=== PATIENT | female | born 1995 | race Caucasian/White ===

== ENCOUNTER 2016-07-22 10:17 | Inpatient (IN) ==
[2016-07-22 10:43] LABS: URINE SOURCE CLEAN CATCH
[2016-07-22 11:06] LABS: MANUAL DIFF NEEDED? NO
[2016-07-22 11:07] LABS: BASO% 0.7 % (0.0-0.8); EOS# 0.33 X1000 (0.0-0.7); EOS% 2.8 % (0.0-10.0); HEMATOCRIT 38.4 % (37.0-47.0); HEMOGLOBIN 12.2 g/dL (12.0-16.0); IMM GRAN# 0.03 X1000 (0.0-0.04); IMM GRAN% 0.3 % (0.0-0.5); LYMPH# 3.88 X1000 (1.2-3.4); LYMPH% 32.9 % (20.5-51.1); MCH 24.4 PG (27-31); MCHC 31.8 g/dL (33-37); MONO# 0.73 X1000 (0.11-0.59); MONO% 6.2 % (1.7-9.3); MPV 10.3 FL (7.4-10.4); NEUT% 57.1 % (42.2-75.2); PLT 402 X1000 (130-400); RBC 4.99 XMIL (4.2-5.4)
[2016-07-22 11:10] LABS: BILIRUBIN URINE NEGATIVE (NEGATIVE); BLOOD URINE NEGATIVE (NEGATIVE); CLARITY CLEAR (CLEAR); COLOR YELLOW; GLUCOSE URINE NEGATIVE (NEGATIVE); LEUKOCYTES URINE 2+ (NEGATIVE); NITRITE URINE NEGATIVE (NEGATIVE); PROTEIN URINE 1+(30 mg/dL) mg/dL (NEGATIVE); SP GRAVITY URINE 1.025; UROBILINOGEN URINE 1+(1 mg/dL)
[2016-07-22 11:11] LABS: URINE CULTURE PL NEEDED? YES; URINE EPITHELIAL CELLS <10 /HPF (<10); URINE WBC 20-40 /HPF (<10)
--- NOTE | 2016-07-22 11:28 | PROVIDER DOCUMENTATION ---
HPI-Abdominal Pain/GI Problem - General Chief Complaint: Abdominal Pain Stated Complaint: ABD PAIN Time Seen by Provider: 07/22/16 11:46 Source: patient Allergies/Adverse Reactions: Patient Allergies Allergy/AdvReac Type Severity Reaction Status Date / Time No Known Allergies Allergy Verified 12/14/15 09:35 Home Medications: Home Medication List Medication Instructions Recorded Confirmed Last Taken Type No Home Medications 07/22/16 07/22/16 Unknown History - History of Present Illness-ABD Nature of Presenting Problems: 20 yo F presents to the ER with complaint of sudden onset of abdominal pain while at work, describes it as the "worst pain she has ever experienced". Pt states at the time it was generalized abdominal pain, now it is more just RUQ. Denies any nausea or vomiting. Abdominal Pain Onset Location: reports: RUQ, generalized abdomen Pain Radiation: reports: no radiation Onset/Duration: reports: just prior to arrival Associated Symptoms: denies: constipation, diarrhea, nausea, vomiting Review of Systems - Adult - REVIEW OF SYSTEMS - ADULT Constitutional: denies: chills, fever Eyes: reports: no symptoms reported Ears, Nose, Mouth & Throat: reports: no symptoms reported Cardiovascular: denies: chest pain, palpitations Respiratory: denies: cough, shortness of breath Gastrointestinal: reports: abdominal pain. denies: diarrhea, nausea, vomiting Genitourinary: reports: no symptoms reported Musculoskeletal: reports: no symptoms reported Integumentary: reports: no symptoms reported Neurological: reports: no symptoms reported Psychiatric: reports: no symptoms reported Endocrine: reports: no symptoms reported Hematologic/Lymphatic: reports: no symptoms reported Allergic/Immunologic: reports: no symptoms reported All Other Systems: Reviewed and Negative Past History - Adult - PAST MEDICAL HISTORY-ADULT Review of Records: reports: Nursing Assessment Review, Medications Reviewed - IMMUNIZATION STATUS Childhood Immunizations: See Nurse Assessment Flu Vaccine: See Nurse Assessment Physical Exam-General - PHYSICAL EXAM-ADULT Initial Vital Signs Reviewed: Yes - CONSTITUTIONAL General Appearance: alert, no apparent distress - EYES Eyes: PERRL/EOMI, pink conjunctivae - HEAD, EARS, NOSE, MOUTH & THROAT HENMT: normocephalic/atraumatic, normal ENT inspection - NECK Neck: supple, normal inspection - RESPIRATORY Respiratory: no respiratory distress, no accessory muscle use - CARDIOVASCULAR Cardiovascular: normal peripheral pulses, regular rate, rhythm - GASTROINTESTINAL (ABDOMEN) Abdominal Exam: normal bowel sounds, soft, tenderness (RUQ) - MUSCULOSKELETAL Back Exam: no CVA tenderness, no vertebral tenderness Extremity: normal range of motion, non-tender, normal gait, normal inspection - SKIN Integumentary: normal color, warm/dry - NEUROLOGIC Neurologic: grossly normal, no motor/sensory deficits - PSYCHIATRIC Psych/Mental Status: normal mood/affect, normal thought content, normal thought process, oriented x 3 Progress - PLAN OF CARE/RESULTS Progress/Plan/Lab Results: Vital Signs Temp Pulse Resp Pulse Ox 07/22/16 10:31 98 F 77 28 H 100 No Known Allergies Allergy (Verified 12/14/15 09:35) No Home Medications 07/22/16 Laboratory 07/22/16 07/22/16 07/22/16 10:50 10:50 10:35 WBC 11.81 H RBC 4.99 Hgb 12.2 Hct 38.4 MCV 77.0 L MCH 24.4 L MCHC 31.8 L RDW Std Deviation 16.5 H Plt Count 402 H MPV 10.3 Immature Gran % (Auto) 0.3 Neut % (Auto) 57.1 Lymph % (Auto) 32.9 [place] % (Auto) 6.2 Eos % (Auto) 2.8 Baso % (Auto) 0.7 Immature Gran # (Auto) 0.03 Neut # (Auto) 6.76 H Lymph # (Auto) 3.88 H [place] # (Auto) 0.73 H Eos # (Auto) 0.33 Baso # (Auto) 0.08 Sodium 140 Potassium 3.6 Chloride 105 Carbon Dioxide 24 L Anion Gap 11 BUN 9 Creatinine 0.9 Estimated GFR/1.73 m2 > 60 BUN/Creatinine Ratio 10 Glucose 136 H Calculated Osmolality 280 Calcium 9.8 Total Bilirubin 0.20 AST 33 H ALT 47 H Alkaline Phosphatase 86 Total Protein 7.2 Albumin 4.1 Globulin 3.0 Albumin/Globulin Ratio 1.0 Amylase 55 Lipase 34 Urine Source Urine Color Urine Clarity Urine pH Ur Specific Benton Urine Protein Urine Ketones Urine Blood Urine Nitrite Urine Bilirubin Urine Urobilinogen Urine Microscopic RBC Urine WBC Urine Microscopic WBC Ur Epithelial Cells Urine Bacteria Urine Glucose Urine Test NEGATIVE 07/22/16 10:35 WBC RBC Hgb Hct MCV MCH MCHC RDW Std Deviation Plt Count MPV Immature Gran % (Auto) Neut % (Auto) Lymph % (Auto) [place] % (Auto) Eos % (Auto) Baso % (Auto) Immature Gran # (Auto) Neut # (Auto) Lymph # (Auto) [place] # (Auto) Eos # (Auto) Baso # (Auto) Sodium Potassium Chloride Carbon Dioxide Anion Gap BUN Creatinine Estimated GFR/1.73 m2 BUN/Creatinine Ratio Glucose Calculated Osmolality Calcium Total Bilirubin AST ALT Alkaline Phosphatase Total Protein Albumin Globulin Albumin/Globulin Ratio Amylase Lipase Urine Source CLEAN CATCH Urine Color YELLOW Urine Clarity CLEAR Urine pH 5.0 Ur Specific Benton 1.025 Urine Protein 1+(30 mg/dL) A Urine Ketones TRACE Urine Blood NEGATIVE Urine Nitrite NEGATIVE Urine Bilirubin NEGATIVE Urine Urobilinogen 1+(1 mg/dL) Urine Microscopic RBC Not Reportable Urine WBC 2+ A Urine Microscopic WBC 20-40 A Ur Epithelial Cells <10 Urine Bacteria 2+ Urine Glucose NEGATIVE Urine Test Orders Category Date Time Status US GB < RUQ (LIMITED) [US] Stat Exams 07/22/16 11:46 Taken AMYLASE [CHEM] Stat Lab 07/22/16 10:50 Completed CBC WITH DIFF [HEME] Stat Lab 07/22/16 10:50 Completed COMPREHENSIVE METABOLIC PANEL [CHEM] Stat Lab 07/22/16 10:50 Completed LIPASE [CHEM] Stat Lab 07/22/16 10:50 Completed TEST-URINE [PREG] Stat Lab 07/22/16 10:[address] W/POSS RFLX CULT [URINALYSIS] Stat Lab 07/22/16 10:35 Completed URINE CULTURE [RM] Routine Lab 07/22/16 11:12 Received - ULTRASOUND (By Radiology) 1 US Study: Gallbladder Impression: Abnormal (impacted stone in GB neck, cholecystitis, per radiologist) - CONSULTS/PCP/HOSPITALIST Notification #1 *Consult/PCP/Hospitalist*: Dr. Su Time Discussed: 15:28 Consult Disposition: Admit Departure - Departure Time of Disposition Order: 15:29 DIAGNOSIS: Cholecystitis, Gallstone (impacted) Disposition: ADMITTED INPATIENT 09 Certified Medical Emergency: Emergent Condition: Stable Attestation - Scribe Verification/Attestation Scribe:: Birgit Blanco Acting as Scribe for:: Esteban Mendez Scribe documention review:: This chart was documented by a scribe and accurately reflects the service the provider performed and the decisions made by the provider.
[2016-07-22 11:31] LABS: AGAP 11; ALBUMIN 4.1 g/dL (3.5-5.0); ALKALINE PHOSPHATASE 86 U/L (32-104); AMYLASE 55 U/L (20-200); BUN 9 mg/dL (8-22); CALCIUM 9.8 mg/dL (8.8-10.2); CHLORIDE 105 mmol/L (98-107); COSMO 280; GOT 33 U/L (10-30); GPT 47 U/L (10-36); LIPASE 34 U/L (13-60); POTASSIUM 3.6 mmol/L (3.5-5.1); SODIUM 140 mmol/L (136-145); TCO2 24 mmol/L (25-35); TOTAL PROTEIN 7.2 g/dL (6.3-8.3)
--- NOTE | 2016-07-22 15:34 | Diag Imaging Result Document ---
PROCEDURE NAME: US GB < RUQ (LIMITED) - 07/22/2016 RIGHT UPPER QUADRANT ULTRASOUND: FINDINGS: The head and body of the pancreas are within normal limits. The liver is somewhat hyperechoic. The aorta and inferior vena cava are normal in appearance where they are visible. There is antegrade flow in the portal vein. The common bile duct measures 4 mm. The right kidney is without evidence of hydronephrosis or mass. The gallbladder wall is thickened. There is a stone in the neck of the gallbladder, and there is considerable sediment. The stone measures at least 12 mm in diameter. The gallbladder wall is slightly thickened, and there appears to be sediment within the gallbladder. There is an apparent sonographic Matias sign. IMPRESSION: Acute cholecystitis with stone impacted in the gallbladder neck.
[2016-07-22] MEDS ORDERED: TYLENOL PO PRN (16:04)
[2016-07-22] MEDS ORDERED: NS 1,000 ML IV SCH (16:15)
[2016-07-22] MEDS ORDERED: ZOFRAN IV PRN (18:20)
[2016-07-22] MEDS: LR 1,000 ML IV SCH (19:09)
[2016-07-22] MEDS: ZOSYN 3.375 GM/NS 50 ML IV SCH ×2 (19:09→23:16)
--- NOTE | 2016-07-22 20:10 | HISTORY AND PHYSICAL ---
ADMITTING DIAGNOSIS: Acute cholecystitis. HISTORY OF PRESENT ILLNESS: A 20-year-old, female presenting to the [facility] ER with right upper quadrant pain. This hit her suddenly while she was working at [employer]. She said she had previous pain in her right upper quadrant but nothing to this degree. She had pain in right upper quadrant previously and was evaluated in the emergency department and found to have gallstones. At that time, nothing was done. She did report a previous episode. She had pain that radiated to her back and to her chest on the right side. This all initially started 3 years ago when she had her son. She has not had such severe symptoms until today, again when she started having sudden onset sharp pain which she describes as the worst pain she has ever had and it felt like something was twisting in her abdomen at her right upper quadrant. She was evaluated in the emergency department and found to have acute cholecystitis and transferred over to [facility] [place] for evaluation. The patient is reporting that her pain is improved somewhat but still has some right upper quadrant pain. PAST MEDICAL HISTORY: None. PAST SURGICAL HISTORY: Pre wisdom teeth removal. MEDICATIONS: None. ALLERGIES: None. SOCIAL HISTORY: The patient is a current smoker of 1 pack per day. She drinks socially. No recreational drugs. FAMILY HISTORY: Reviewed with patient, noncontributory. REVIEW OF SYSTEMS: A full 10 point review of systems obtained, negative except those specified in HPI. PHYSICAL EXAMINATION: VITAL SIGNS: The patient is currently afebrile. Temperature 99.4 degrees, pulse is regular at 76, respiratory rate nonlabored at 20, blood pressure 127/68, O2 saturation 100% on room air. GENERAL EXAM: No acute distress. Resting comfortably in bed. female, looks stated age. Patient's BMI is 32.7. In HEENT: Normocephalic, atraumatic. Pupils equal, round, reactive to light. Mucous membranes moist. Oropharynx benign. NECK: Supple. Trachea midline. CARDIOVASCULAR: Regular rate and rhythm. LUNGS: Grossly clear. ABDOMEN: Soft, nondistended. Some tenderness to palpation in the right upper quadrant. Questionably positive Matias's sign. No peritoneal signs. EXTREMITIES: Moves all extremities. SKIN: No signs of jaundice. VASCULAR: All extremities perfused. LABORATORY: White blood cell count is 11.8, hematocrit is 38.4, platelet count 402,000. CMP reviewed. Of note, bilirubin 0.2, alkaline phosphatase 86, lipase is 34. IMAGING: Ultrasound reviewed and radiology report reviewed. Patient does have a mildly thickened gallbladder, no pericholecystic fluid and a stone impacted in the infundibulum of the gallbladder. No other pathology appreciated on ultrasound. ASSESSMENT AND PLAN: A 20-year-old, female with acute cholecystitis. Acute cholecystitis. At this time we will give the patient IV antibiotics over the course of the night, keep her n.p.o., and plan for laparoscopic cholecystectomy in the morning. Discussed the surgery with the patient. Discussed risks, benefits, alternatives. She voiced understanding and wishes to proceed with surgery. Again, I have her posted for in the morning.
[2016-07-23] MEDS: LR 1,000 ML IV SCH ×3 (05:44→22:05)
[2016-07-23] MEDS: ZOSYN 3.375 GM/NS 50 ML IV SCH ×3 (05:44→17:48)
[2016-07-23 06:42] LABS: AGAP 12; ALBUMIN 3.2 g/dL (3.5-5.0); ALKALINE PHOSPHATASE 61 U/L (32-104); BUN 7 mg/dL (8-22); CHLORIDE 108 mmol/L (98-107); COSMO 281; GOT 21 U/L (10-30); GPT 36 U/L (10-36); POTASSIUM 4.1 mmol/L (3.5-5.1); SODIUM 142 mmol/L (136-145); TCO2 22 mmol/L (25-35); TOTAL BILIRUBIN 0.47 mg/dL (0.20-1.00); TOTAL PROTEIN 5.7 g/dL (6.3-8.3)
--- NOTE | 2016-07-23 07:13 | PROGRESS NOTE ---
DATE: 07/23/2016 SUBJECTIVE: Patient doing okay. Pain is improved. No real nausea or vomiting. OBJECTIVE: Vital Signs: Patient is currently afebrile. Her vital signs are stable. General Exam: No acute distress. Alert, interactive, female, looks stated age. HEENT: Normocephalic, atraumatic. Pupils are equal, round, reactive to light. No scleral icterus noted. Mucous membranes moist. Oropharynx benign. Neck: Supple. Trachea midline. Cardiovascular: Regular rate and rhythm. Lungs: Grossly clear. Abdomen: Soft, nondistended. Some mild right upper quadrant epigastric tenderness to palpation. Improved from yesterday. Extremities: Moves all extremities. Neurologic: Grossly intact. Skin: No signs of jaundice. Vascular: All extremities perfused. LABORATORY: Currently pending. ASSESSMENT AND PLAN: A 20-year-old, female with cholecystitis. Cholecystitis: At this time, we will plan on surgical intervention today. Will follow up with labs. May need cholangiogram.
[2016-07-23 08:05] LABS: HEMATOCRIT 33.5 % (37.0-47.0); HEMOGLOBIN 10.6 g/dL (12.0-16.0); MCH 24.5 PG (27-31); MCHC 31.6 g/dL (33-37); MCV 77.5 FL (81-99); MPV 10.2 FL (7.4-10.4); RBC 4.32 XMIL (4.2-5.4)
[2016-07-23] MEDS ORDERED: SODIUM CHLORIDE 0.9% ONE (16:24)
[2016-07-23] MEDS ORDERED: MARCAINE 0.25% PF/EPI 1:200,000 ONE (16:24)
[2016-07-23] MEDS ORDERED: LR 1,000 ML ONE (16:24)
[2016-07-23] MEDS ORDERED: VERSED ONE (16:33)
[2016-07-23] MEDS ORDERED: DEMEROL ONE ×2 (18:04→18:18)
[2016-07-23] MEDS: PHENERGAN ONE ×2 (18:04→18:18)
[2016-07-23] MEDS ORDERED: FENTANYL ONE (19:10)
[2016-07-23] MEDS ORDERED: DIPRIVAN 1% ONE (19:11)
[2016-07-23] MEDS: MORPHINE IV PRN (21:55)
--- NOTE | 2016-07-23 22:37 | OPERATIVE NOTE ---
PROCEDURE DATE: 07/23/2016 PREOPERATIVE DIAGNOSIS: Acute cholecystitis. POSTOP DIAGNOSIS: Acute cholecystitis. PROCEDURES: Laparoscopic cholecystectomy. SURGEON: Vishnu Su MD. BATH STEWARD/STEWARDESS: None. ANESTHESIA: General endotracheal. INTRAOPERATIVE FINDINGS: Inflamed gallbladder with infected looking bile with a large stone noted. COMPLICATIONS: None time of dictation. ESTIMATED BLOOD LOSS: 20 mL. SPECIMEN REMOVED: Gallbladder. DRAINS: 19-Australian Marshall drain. BRIEF HISTORY: The patient is a 20-year-old female presenting with symptoms classic for acute cholecystitis. She was evaluated in the emergency department found to have acute cholecystitis and was admitted to the hospital, started on antibiotics. The risks, benefits, alternatives for cholecystectomy were discussed. She voiced understanding and wished to proceed with procedure. DESCRIPTION OF PROCEDURE: After informed consent was obtained patient brought to the operative theatre, transferred to the operative table and placed supine position. General endotracheal anesthesia was then performed without complication. A formal time-out was then performed confirming patient, date, procedure. All were in agreement. At that time attention given to abdomen. Infraumbilical incision was made through which using Optiview technique we inserted the 1st 11 mm trocar connected to insufflation. Pneumoperitoneum was achieved. Under direct visualization placed 3 more trocars all 5 mm 1 in the subxiphoid, 2 at the right upper quadrant. We examined the abdomen its entirety. There was no other pathology besides the gallbladder. We had difficulty grasping the gallbladder given its inflamed nature eventually had to change control specialist to a Tyree screw but we were able to elevate the gallbladder. The gallbladder was also densely stuck to a segment of liver but we were able to free it up. We then were able dissect out the cystic duct and cystic artery to achieve the critical view of safety. We doubly clipped and ligated these structures. There was also a posterior cystic artery which we were able to identify and ligate. Once we had done this we took the gallbladder off the gallbladder fossa with electrocautery. Given the fact we had used Reddicks here there was some tearing noted in the gallbladder and we drained some infected looking bile, replaced the gallbladder into an endobag and brought out through the infraumbilical incision. We copiously irrigated out the gallbladder fossa, reexamined the clips, they were in good position, no active drainage of bile, bleeding was noted from the gallbladder. Given the inflammation and infection and spillage of bile we elected to leave a drain in the right upper quadrant through the most lateral trocar site. We secured it in place with a standard fashion. We closed the infraumbilical incision with 0 Vicryl. Removed all trocars, disconnected insufflation. Pneumoperitoneum was released. All skin incisions closed with 4-0 Monocryl. Patient tolerated procedure well, was transferred to recovery room in stable condition.
[2016-07-24] MEDS: ZOSYN 3.375 GM/NS 50 ML IV SCH ×3 (00:23→11:26)
[2016-07-24] MEDS: MORPHINE IV PRN ×3 (00:26→08:23)
[2016-07-24] MEDS: LR 1,000 ML IV SCH ×2 (04:01→09:51)
--- NOTE | 2016-07-24 05:57 | PROGRESS NOTE ---
DATE: 07/24/2016 SUBJECTIVE: The patient is doing well and complains of some shortness of breath. Otherwise, no major issues. OBJECTIVE: Vital Signs: Patient is currently afebrile. Her vital signs have been stable. SELIN is in place with serosanguineous output with 90 mL reported. General: Exam in no acute distress resting comfortably in bed. Cardiovascular: Regular rate and rhythm. Lungs: Grossly clear. Abdomen: Soft, nondistended, appropriately tender incision sites. SELIN in place as described above. ASSESSMENT AND PLAN: A 20-year-old female postoperative day 1 from a laparoscopic cholecystectomy for acute cholecystectomy. Acute cholecystectomy. At this time, I would like to get the patient a couple more hours and another dose at least of antibiotics given the degree of inflammation. At that time, there is potential for discharge later today.
[2016-07-24] MEDS: NORCO-10 PO PRN ×2 (07:25→12:14)
[2016-07-24] MEDS ORDERED: NEOSTIGMINE ONE (08:50)
[2016-07-24] MEDS ORDERED: ZOFRAN ONE (08:50)
[2016-07-24] MEDS ORDERED: NORCURON ONE (08:50)
[2016-07-24] MEDS ORDERED: XYLOCAINE-MPF 2% ONE (08:51)
[2016-07-24] MEDS ORDERED: ROBINUL ONE (08:51)
[2016-07-24] MEDS ORDERED: DECADRON ONE (08:51)
[2016-07-24] MEDS ORDERED: QUELICIN (DOSE) ONE (08:51)
[2016-07-24] MEDS ORDERED: LR 1,000 ML ONE (08:51)
[2016-07-24 12:51] VITALS: BP 126/63
== END 2016-07-24 15:05 | disposition home or self-care (01) | DRG 419 ==
LOC: P.ED 10:17 → OBSVTOIN 17:42 → 4N 17:42
PROVIDERS: ADMIT Surgery; ATTEND Surgery
PROC: 0FT44ZZ Resection of Gallbladder, Percutaneous Endoscopic Approach (ICD-10-PCS; principal; 2016-07-23 16:40)
DX: K80.12 Calculus of gallbladder with acute and chronic cholecystitis without obstruction (principal); D64.9 Anemia, unspecified; F17.210 Nicotine dependence, cigarettes, uncomplicated
CPT/HCPCS: 76705; 80053; 81001; 81025; 82150; 83690; 85025; 85027; 87088; 88304; 96360; J0330; J1100; J2175; J2250; J2270; J2405; J2543; J2550; J3010; J7030; J7120; J2710